=== PATIENT | male | born 1945 | race Caucasian/White ===

== ENCOUNTER 2025-01-18 01:07 | Inpatient (IN) | payer OTHER ==
[2025-01-18 02:01] LABS: MCHC 29.5 g/dl (32.3-36.5); MEAN CELL VOLUME 110.0 fl (79.0-92.2); MEAN PLT VOLUME 10.3 fl (9.4-12.4); RDW 19.9 % (12.2-16.6)
[2025-01-18] MEDS: SODIUM CHLORIDE 0.9% 500 ML INFUS.BAG IV ONE (02:04)
[2025-01-18] MEDS: NOREPINEPHRINE BITARTRATE/D5W 8 MG/250 ML BAG IVPB SCH (02:05)
[2025-01-18 02:21] LABS: GLUCOSE,RANDOM 66 mg/dL (74-106); TOT PROT 4.9 g/dl (6.4-8.2)
[2025-01-18 02:22] LABS: CO2 13 mmol/L (21-32)
[2025-01-18 02:24] LABS: ALK PHOS 522 U/L (40-150)
[2025-01-18 02:26] LABS: SGPT/ALT 55 U/L (0-55)
[2025-01-18 02:27] LABS: CREATININE 1.24 mg/dL (0.55-1.3); SGOT/AST 750 U/L (5-34)
[2025-01-18 02:35] LABS: LACTIC ACID 9.2 mmol/L (0.4-2.0)
[2025-01-18] MEDS ORDERED: PIPERACILLIN/TAZOB 4.5 GM 4.5 GM/100 ML BAG IVPB ONE (02:46)
[2025-01-18] MEDS: PIPERACILLIN/TAZOB 4.5 GM 4.5 GM in DEXTROSE 5%-WATER 100 ML IVPB ONE (02:51)
[2025-01-18] MEDS ORDERED: VANCOMYCIN 1 GM PREMIX (F) 1 GM/200 ML BAG ONE (03:04)
[2025-01-18] MEDS: VANCOMYCIN 1 GM PREMIX (F) 1 GM/200 ML BAG IVPB ONE (03:08)
[2025-01-18 03:16] LABS: EPI CELLS 7 /uL (0-25.1); HYALINE CASTS 4 /uL (0-3.1); URINE APPEARANCE CLOUDY; URINE BILIRUBIN 2+ (NEGATIVE); URINE COLOR DK YELLOW; URINE GLUCOSE (UA) NEGATIVE (NEGATIVE); URINE KETONE NEGATIVE (NEGATIVE); URINE LEUK ESTERASE 1+ (NEGATIVE); URINE NITRITE POSITIVE (NEGATIVE); URINE PROTEIN 1+ (NEGATIVE); URINE RBC 32 /uL (0-23.9); URINE UROBILINOGEN 1.0 mg/dL (0.2-1.0); URINE WBC 14 /uL (0-25.8)
[2025-01-18] MEDS ORDERED: ONDANSETRON 4 MG/2 ML VIAL IVPUSH PRN (03:40)
[2025-01-18 04:03] LABS: N-TERMINAL BNP 2057.7 pg/mL (0-299.9)
[2025-01-18] MEDS ORDERED: FENTANYL CITRATE/PF 50 MCG/ML VIAL ONE (04:10)
[2025-01-18 04:11] LABS: URINE UREA NITROGEN 520 mg/dL (350-1000)
[2025-01-18] MEDS ORDERED: HYDROCORTISONE SOD SUCCINATE 100 MG/2 ML VIAL ONE (04:42)
[2025-01-18] MEDS: HYDROCORTISONE SOD SUCCINATE 100 MG/2 ML VIAL IVPB SCH (04:45)
[2025-01-18 05:21] LABS: LACTIC ACID 7.9 mmol/L (0.4-2.0)
[2025-01-18] MEDS: HEPARIN NA (PORCINE) 5,000 UNITS/ML 1ML VIAL SQ SCH (06:11)
[2025-01-18] MEDS: DEXTROSE 50%-WATER 25 GM/50 ML DISP.SYRIN IVPUSH ONE (06:13)
[2025-01-18 06:30] LABS: MCHC 28.8 g/dl (32.3-36.5); MEAN CELL VOLUME 107.8 fl (79.0-92.2); MEAN PLT VOLUME 11.2 fl (9.4-12.4); RDW 19.7 % (12.2-16.6)
[2025-01-18 06:39] VITALS: BMI 23.5
[2025-01-18 06:40] LABS: BG HCT 36.0 % (35.4-49); VENOUS BASE EXCESS -13.6 mmol/L (-2-2); VENOUS O2 SATURATION 79.4 % (70-80); VENOUS PCO2 22.6 mmHg (38-52); VENOUS PH 7.3 (7.310-7.410)
[2025-01-18 06:42] LABS: INR 1.95 (0.83-1.09); PROTHROMBIN TIME (PATIENT) 21.3 SEC (9.7-13.0)
[2025-01-18 06:44] LABS: ACTIVATED PTT 48.5 SECONDS (25.2-36.5); GLUCOSE,RANDOM 83 mg/dL (74-106); TOT PROT 4.6 g/dl (6.4-8.2)
[2025-01-18 06:45] LABS: CO2 11 mmol/L (21-32)
[2025-01-18 06:47] LABS: ALK PHOS 529 U/L (40-150)
[2025-01-18 06:49] LABS: LACTIC ACID 9.1 mmol/L (0.4-2.0)
[2025-01-18 06:50] LABS: CREATININE 1.27 mg/dL (0.55-1.3); SGOT/AST 745 U/L (5-34); SGPT/ALT 57 U/L (0-55)
[2025-01-18 06:57] LABS: N-TERMINAL BNP 2077.7 pg/mL (0-299.9)
[2025-01-18 07:04] LABS: ARTERIAL BLD GAS O2 SATURATION 99.0 % (95-98); ARTERIAL BLOOD GAS BASE EXCESS -12.7 mmol/L (-2-2); ARTERIAL BLOOD GAS PCO2 21.70 mmHg (35-45); ARTERIAL BLOOD GAS PO2 159.6 mmHg (80-100); BG HCT 35.0 % (35.4-49); O2 CONTENT 1.69 % vol
[2025-01-18] MEDS: LACTATED RINGERS SOLUTION 1000 ML INFUS.BAG IV ONE ×3 (07:27→11:15)
[2025-01-18 08:42] LABS: LDH > 7500 U/L (87-246)
[2025-01-18] MEDS: PIPERACILLIN/TAZOB 4.5 GM 4.5 GM in DEXTROSE 5%-WATER 100 ML IVPB SCH (09:42)
[2025-01-18] MEDS ORDERED: PIPERACILLIN/TAZOB 4.5 GM 4.5 GM in DEXTROSE 5%-WATER 100 ML IVPB SCH (10:00)
[2025-01-18] MEDS: ACETAMINOPHEN 1000 MG/100 ML BAG IVPB PRN (11:13)
[2025-01-18] MEDS: SODIUM BICARBONATE 8.4% - 75 MEQ in DEXTROSE 5%-WATER - 1,000 ML IV SCH (11:14)
[2025-01-18] MEDS: PHYTONADIONE 10 MG/1 ML AMP IVPB ONE ×2 (11:14→21:25)
[2025-01-18] MEDS: MUPIROCIN 2% TOPICAL OINTMENT FOR DECOLONIZATION NS SCH (11:15)
[2025-01-18] MEDS: FLUDROCORTISONE ACETATE 0.1 MG TABLET (FP) PO SCH (11:16)
[2025-01-18] MEDS: SODIUM CHLORIDE 500 ML IV STA (14:20)
[2025-01-18] MEDS ORDERED: PHENYLEPHRINE NS PREMIX 50,000 MCG/500 ML BAG CVP SCH ×2 (15:00)
[2025-01-18] MEDS ORDERED: VANCOMYCIN 1,000 MG in DEXTROSE 5%-WATER - 250 ML IVPB SCH (15:00)
[2025-01-18] MEDS: SODIUM BICARBONATE 8.4% - 150 MEQ in DEXTROSE 5%-WATER - 950 ML IV SCH (15:06)
[2025-01-18] MEDS: VANCOMYCIN/WATER FOR INJ (PEG) 1,000 MG/200 ML BAG IVPB SCH (15:07)
[2025-01-18] MEDS: PHENYLEPHRINE HCL 50,000 MCG in SODIUM CHLORIDE 500 ML IV SCH (15:19)
[2025-01-18 17:12] LABS: INR 2.79 (0.83-1.09); PROTHROMBIN TIME (PATIENT) 30.7 SEC (9.7-13.0)
[2025-01-18] MEDS: SODIUM CHLORIDE 1,000 ML IV SCH (17:17)
[2025-01-18] MEDS ORDERED: MORPHINE SULFATE 2 MG/ML SYRINGE ONE (17:45)
[2025-01-18] MEDS: MORPHINE SULFATE 2 MG/ML SYRINGE IVPUSH ONE (18:10)
[2025-01-18 18:53] VITALS: TEMP 98.8
[2025-01-18] MEDS ORDERED: PHENYLEPHRINE HCL 10 MG/1 ML SINGLE DOSE VIAL ONE (20:04)
[2025-01-18] MEDS: SODIUM BICARBONATE 8.4% - 150 MEQ in DEXTROSE 5%-WATER - 950 ML IVPB SCH (21:18)
[2025-01-18] MEDS: BRIMONIDINE TARTRATE 0.2% OPHTHALMIC 5 ML BOTTLE OU SCH (21:18)
[2025-01-18] MEDS: CHLORHEXIDINE GLUCONATE 4% CLEANSER FOR DECOLONIZATION TP SCH (21:19)
[2025-01-18 21:50] VITALS: BP 82/62; PULSE 68; RESP 27
[2025-01-19] MEDS ORDERED: PANTOPRAZOLE SODIUM 40 MG VIAL IVPUSH SCH (10:00)
== END 2025-01-19 00:27 | disposition expired | DRG 871 ==
LOC: JER 01:07 → JERBED 02:24 → JICU 05:30
PROVIDERS: ADMIT Internal Medicine Pulmonary Disease; ATTEND Internal Medicine Pulmonary Disease
PROC: 05HN33Z Insertion of Infusion Device into Left Internal Jugular Vein, Percutaneous Approach (ICD-10-PCS; principal; 2025-01-18)
PROC: B544ZZA Ultrasonography of Left Jugular Veins, Guidance (ICD-10-PCS; 2025-01-18)
PROC: 4A133B1 Monitoring of Arterial Pressure, Peripheral, Percutaneous Approach (ICD-10-PCS; 2025-01-18)
PROC: 4A133J1 Monitoring of Arterial Pulse, Peripheral, Percutaneous Approach (ICD-10-PCS; 2025-01-18)
PROC: 0BH17EZ Insertion of Endotracheal Airway into Trachea, Via Natural or Artificial Opening (ICD-10-PCS; 2025-01-18)
PROC: 5A1935Z Respiratory Ventilation, Less than 24 Consecutive Hours (ICD-10-PCS; 2025-01-18)
DX: A41.89 Other specified sepsis (principal); E43 Unspecified severe protein-calorie malnutrition; J96.01 Acute respiratory failure with hypoxia; R65.21 Severe sepsis with septic shock; K72.00 Acute and subacute hepatic failure without coma; R53.2 Functional quadriplegia; G93.41 Metabolic encephalopathy; R18.8 Other ascites; J90 Pleural effusion, not elsewhere classified; E87.20 Acidosis, unspecified; L89.152 Pressure ulcer of sacral region, stage 2; I25.5 Ischemic cardiomyopathy; Z68.23 Body mass index [BMI] 23.0-23.9, adult; R41.82 Altered mental status, unspecified; H40.9 Unspecified glaucoma; E11.9 Type 2 diabetes mellitus without complications; I10 Essential (primary) hypertension; D69.6 Thrombocytopenia, unspecified; D64.9 Anemia, unspecified; R68.0 Hypothermia, not associated with low environmental temperature; R16.0 Hepatomegaly, not elsewhere classified; I48.91 Unspecified atrial fibrillation; M06.9 Rheumatoid arthritis, unspecified; R57.0 Cardiogenic shock
CPT/HCPCS: 36415; 36600; 70450-TC; 71045-TC-FY; 71260-TC; 74177-TC; 76705-TC; 80053; 81003; 82140; 82248; 82308; 82436; 82550; 82570; 82610; 82803; 82962; 82977; 83010; 83036; 83605; 83615; 83735; 83880; 83930; 84100; 84133; 84300; 84436; 84443; 84484; 84540; 85025; 85610; 85730; 86140; 86850; 86900; 86901; 87040; 87077; 87081; 87086; 87481; 87637-QW; 93005; 93010; 93306-TC; 99285-25; J1250; J3490; Q9967